=== PATIENT | female | born 1995 ===

== ENCOUNTER → 2024-05-04 | Outpatient (CLI) | payer SELFPAY | END | disposition home or self-care (01) | LOC: LAB SHORT 11:51 | DX: O20.0 Threatened abortion (principal) | CPT/HCPCS: 84702 ==

== ENCOUNTER → 2024-05-21 | Outpatient (CLI) | payer OTHER | LOC: LAB 16:11 → LAB SHORT 16:11 | DX: O20.0 Threatened abortion (principal) | CPT/HCPCS: 84702 ==